=== PATIENT | male | born 1995 | race Caucasian/White ===

== ENCOUNTER 2019-01-10 11:15 | Outpatient (CLI) | payer OTHER ==
--- NOTE | 2019-01-10 15:53 | MRI ---
MRI OF THE ABDOMEN WITHOUT AND WITH CONTRAST: 01/10/19 HISTORY: Crohn's disease with symptoms for about three months with abdominal pain. TECHNIQUE: Multiplanar and multisequence MR images were obtained in the abdomen without and with IV contrast. Vo Lumen was given for negative contrast. The Glucagon was not given during this examination as the symone ent refused Glucagon administration. FINDINGS: There is an area of circumferential thickening of the wall of the terminal ileum measuring approximat isabel 4.2 cm in length. No other areas of narrowing of the small bowel are seen. The more proximal smal l bowel is normal in diameter without evidence of obstruction. No obvious fistulas are seen. No infla mmatory changes are seen within the soft tissues. There is slight increased enhancement of this area circumferential thickening compared to the other small bowel loops and cecum. No pelvic adenopathy is seen. The visualized liver, gallbladder, kidneys, adrenal glands, spleen, and pancreas are unremarkable. IMPRESSION: There is thickening of the terminal ileum consistent with patient's diagnosis of Crohn's disease. POS: [facility]
== END 2019-01-10 11:16 | disposition home or self-care (01) ==
LOC: MRI 11:15
PROVIDERS: ATTEND Internal Medicine
DX: K50.00 Crohn's disease of small intestine without complications (principal)
CPT/HCPCS: 74183